=== PATIENT | male | born 1990 | race Caucasian/White ===

== ENCOUNTER → 2023-03-29 | Outpatient (CLI) | payer MEDICAID, SELFPAY ==
--- NOTE | 2023-03-29 16:10 | RAD_ITS ---
INDICATION: Left shoulder injury EXAMINATION/TECHNIQUE: X-RAY - LEFT XR Shoulder 4 VIEWS COMPARISON: FINDINGS: SOFT TISSUES: No soft tissue swelling or gas. No radiopaque foreign body. BONES/JOINTS: No acute fracture or subluxation.. Normal alignment. Preservation of the joint space.. No sclerotic or destructive changes observed. RAD/Shoulder min 2 Views IMPRESSION: Negative. Electronically Signed: Quan Flores DO at 16:20 EDT ,
== END | disposition home or self-care (01) ==
LOC: MTRAD 16:06
PROVIDERS: Referring Provider Physician Assistant Surgical; Visit Provider Physician Assistant Surgical
DX: S49.92XA Unspecified injury of left shoulder and upper arm, initial encounter (principal); X58.XXXA Exposure to other specified factors, initial encounter
CPT/HCPCS: 73030